=== PATIENT | female | born 1990 | race Two or more races ===

== ENCOUNTER 2018-10-11 08:15 | Inpatient (IN) | payer OTHER ==
[~2018-10-11] VITALS: Ht 165.1 cm; Wt 84.8 kg
[2018-10-12] MEDS ORDERED: PRENATAL FORMU1 EAC1 PO (09:54)
== END 2018-10-14 11:02 | DRG 798 ==
LOC: LDR 10-12 08:19 → OB/GYN 10-12 08:19 → LDR 10-21 08:15
PROVIDERS: Obstetrics & Gynecology
PROC: 4A1HXCZ Monitoring of Products of Conception, Cardiac Rate, External Approach (ICD-10-PCS; 2018-10-12)
PROC: 10E0XZZ Delivery of Products of Conception, External Approach (ICD-10-PCS; principal; 2018-10-12 15:15)
PROC: 0UB70ZZ Excision of Bilateral Fallopian Tubes, Open Approach (ICD-10-PCS; 2018-10-13)
DX: O80 Encounter for full-term uncomplicated delivery (principal); Z37.0 Single live birth; Z3A.38 38 weeks gestation of pregnancy; Z30.2 Encounter for sterilization